=== PATIENT | female | born 1960 | race African-American/Black ===

== ENCOUNTER 2023-11-17 15:03 | Emergency (ER) | payer SELFPAY ==
[~2023-11-17] VITALS: Ht 157.5 cm; Wt 85.0 kg
[2023-11-17 15:06] VITALS: BP 123/75; TEMP 98.8; O2SAT 99
[2023-11-17 15:11] VITALS: PULSE 80; RESP 17
== END 2023-11-17 17:46 | disposition home or self-care (01) ==
LOC: ER 15:03
DX: S01.81XD Laceration without foreign body of other part of head, subsequent encounter (principal); I11.0 Hypertensive heart disease with heart failure; I50.9 Heart failure, unspecified; E78.00 Pure hypercholesterolemia, unspecified; Z90.89 Acquired absence of other organs; Z98.890 Other specified postprocedural states; Z85.9 Personal history of malignant neoplasm, unspecified
CPT/HCPCS: 99281

== ENCOUNTER → 2024-02-02 | Outpatient (CLI) | payer MEDICARE, MEDICAID | END | disposition home or self-care (01) | LOC: RAD 12:36 | PROVIDERS: ATTEND Specialist | DX: M18.12 Unilateral primary osteoarthritis of first carpometacarpal joint, left hand (principal); M25.532 Pain in left wrist | CPT/HCPCS: 73110 ==